=== PATIENT | female | born 1995 | race Caucasian/White ===

== ENCOUNTER → 2018-03-22 | Outpatient (REF) | payer OTHER | LOC: M SFHCLERA 12:06 | DX: J02.9 Acute pharyngitis, unspecified (principal) ==

== ENCOUNTER → 2019-07-12 | Outpatient (CLI) | payer OTHER ==
[~2019-07-12] MED LIST: REGL10TA6 PO; ZOFR4TAB16 PO
--- NOTE | 2019-07-12 16:10 | REP ---
Clinical: Dating and viability. Technique: Transabdominal and transvaginal first trimester obstetrical ultrasound with color Doppler evaluation. Findings: Single live early intrauterine is appreciated. Gestational sac with yolk sac and pole identified. [place]-rump length of 23 mm corresponds to 9 weeks 0 days gestational age with estimated date of delivery 02/14/2020 . heart rate equals 175 beats per minute. No gross abnormalities are identified. Impression: Single live early intrauterine at 9 weeks 0 days gestational age. Complete anatomical assessment should be performed and 19-20 weeks. Electronically Signed by Colby Zapata MD 07/12/2019 04:02 P
== END ==
LOC: M RAD 14:07
PROVIDERS: ATTEND Registered Nurse Maternal Newborn
DX: Z36.89 Encounter for other specified antenatal screening (principal); Z3A.09 9 weeks gestation of pregnancy

== ENCOUNTER 2019-08-06 04:41 | Emergency (ER) | payer OTHER ==
[~2019-08-06] VITALS: Ht 165.1 cm; Wt 65.9 kg
[2019-08-06 04:41] VITALS: BP 121/80
[2019-08-06] MEDS ORDERED: ZOFR4TAB16 PO (04:48)
[2019-08-06] MEDS ORDERED: METOCLOPRAMIDE INJ 10MG/2ML VIAL (J2765) IV ONE (05:30)
[2019-08-06] MEDS ORDERED: NS 1,000 ML IV ONE (05:30)
[2019-08-06 05:31] LABS: BASO % 0.3 % (0.0-1.0); EOS # 0.1 10^3/uL (0.0-0.5); HEMATOCRIT 35.5 % (36.0-47.0); HEMOGLOBIN 12.2 g/dl (12.0-15.5); LYMPH # 1.3 10^3/uL (1.5-5.0); LYMPH % 13.7 % (24.0-44.0); MEAN CORPUSCULAR HEMOGLOBIN 29.4 pg (27.0-33.0); MEAN CORPUSCULAR HGB CONC 34.4 g/dl (32.0-36.5); MEAN CORPUSCULAR VOLUME 85.5 fl (80.0-96.0); MONO # 0.4 10^3/uL (0.0-0.8); MONO % 4.1 % (0.0-5.0); NEUTROPHILS # 7.5 10^3/uL (1.5-8.5); NEUTROPHILS % 80.6 % (36.0-66.0); PLATELET COUNT, AUTOMATED 215 10^3/uL (150-450); RED BLOOD COUNT 4.15 10^6/uL (4.00-5.40); WHITE BLOOD COUNT 9.4 10^3/uL (4.0-10.0)
[2019-08-06 05:54] LABS: ALBUMIN 3.8 GM/DL (3.2-5.2); ALT/SGPT 15 U/L (12-78); BILIRUBIN,DIRECT 0.2 MG/DL (0.0-0.2); BILIRUBIN,TOTAL 0.6 MG/DL (0.2-1.0); BLOOD UREA NITROGEN 6 MG/DL (7-18); CALCIUM LEVEL 9.5 MG/DL (8.5-10.1); CARBON DIOXIDE LEVEL 25 MEQ/L (21-32); CHLORIDE LEVEL 106 MEQ/L (98-107); CREATININE FOR GFR 0.59 MG/DL (0.55-1.30); GLOMERULAR FILTRATION RATE > 60.0 (>60); GLUCOSE, FASTING 86 MG/DL (70-100); LIPASE 111 U/L (73-393); POTASSIUM SERUM 4.2 MEQ/L (3.5-5.1); SODIUM LEVEL 138 MEQ/L (136-145); TOTAL PROTEIN 7.1 GM/DL (6.4-8.2)
[2019-08-06] MEDS ORDERED: REGL10TA6 PO (06:19)
== END 2019-08-06 07:03 | disposition home or self-care (01) ==
LOC: M ED 04:41
DX: O21.0 Mild hyperemesis gravidarum (principal); Z3A.13 13 weeks gestation of pregnancy
CPT/HCPCS: 80048; 80076; 81001; 83690; 85025; 87086; 96361; 96374; 99284; J2765

== ENCOUNTER 2019-12-22 13:05 | Outpatient (CLI) | payer OTHER ==
[~2019-12-22] VITALS: Ht 165.1 cm; Wt 71.5 kg
[2019-12-22] MEDS ORDERED: PRENTAB9 PO (13:20)
[2019-12-22 13:23] VITALS: BP 128/73
[2019-12-22 13:53] VITALS: BP 122/63
--- NOTE | 2020-01-01 13:10 | IPNPDOC ---
Text Note Date of Service The patient was seen on 01/01/20. NOTE LATE ENTRY: Patient Elzbieta Grimm MD Jan 01, 2020 13:10
== END 2019-12-22 14:36 | disposition home or self-care (01) ==
LOC: M LDO 13:05
PROVIDERS: ATTEND Obstetrics & Gynecology
DX: O36.8130 Decreased fetal movements, third trimester, not applicable or unspecified (principal); Z3A.34 34 weeks gestation of pregnancy
CPT/HCPCS: 59025; G0378; G0463

== ENCOUNTER 2020-02-04 11:48 | Emergency (ER) | payer OTHER ==
[~2020-02-04] VITALS: Ht 165.1 cm; Wt 75.0 kg
[2020-02-04 11:48] VITALS: BP 141/85
[~2020-02-04 11:48] MED LIST changes: +PRENTAB9 PO
[2020-02-04] MEDS ORDERED: EMLA CREAM 5GM (LIDOCAINE/PRILOCAINE) TOP ONE (12:15)
[2020-02-04] MEDS ORDERED: ACETAMINOPHEN 500 MG TAB PO ONE (12:15)
[2020-02-04] MEDS ORDERED: QC A650T3 PO (13:06)
== END 2020-02-04 13:13 | disposition home or self-care (01) ==
LOC: M ED 11:48
DX: O9A.219 Injury, poisoning and certain other consequences of external causes complicating pregnancy, unspecified trimester (principal); S01.01XA Laceration without foreign body of scalp, initial encounter; W22.8XXA Striking against or struck by other objects, initial encounter; Y92.71 Barn as the place of occurrence of the external cause; Z3A.00 Weeks of gestation of pregnancy not specified; Z79.899 Other long term (current) drug therapy

== ENCOUNTER 2020-02-04 13:18 | Outpatient (CLI) | payer OTHER ==
[~2020-02-04] VITALS: Ht 165.1 cm; Wt 75.3 kg
[~2020-02-04 13:18] MED LIST changes: +QC A650T3 PO
[2020-02-04 13:28] VITALS: BP 123/75
--- NOTE | 2020-02-04 13:57 | IPNPDOC ---
Text Note Date of Service The patient was seen on 02/04/20. NOTE Patient is a at 39wks s/p trauma. Patient got hit in the head with a board on the left side due to her dog knocking it over. She came to the ER due to it bleeding and her becoming very dizzy. She got 6 angy. Good movement and no contractions. Unsure about vaginal bleeding or loss of fluid. No fall or other trauma. PE VS WNL NAD, A&O x3, good recall Head clean without bruises and 6 angy intact towards middle of hairline slightly to left ABD nontender, gravid SVE no blood or fluid, FT/thick/-3 BLE no edema and nontender FHT category 1, 120s, reactive, no decels, no contractions A/P: Fetus reassuring. No evidence of labor. Since there was no trauma to abdomen and no contractions or pain, I will not pursue an US to further look for placental abruption. Stable currently. Will monitor a total of 4hrs post trauma. She has a f/u appt tomorrow. Elzbieta Grimm MD Feb 04, 2020 13:57
[2020-02-04 15:35] VITALS: BP 123/67
== END 2020-02-04 15:52 | disposition home or self-care (01) ==
LOC: M LDO 13:18
PROVIDERS: ATTEND Obstetrics & Gynecology
DX: O9A.213 Injury, poisoning and certain other consequences of external causes complicating pregnancy, third trimester (principal); S09.90XA Unspecified injury of head, initial encounter; W22.8XXA Striking against or struck by other objects, initial encounter; Y92.89 Other specified places as the place of occurrence of the external cause; Y93.89 Activity, other specified; Y99.8 Other external cause status; Z3A.39 39 weeks gestation of pregnancy
CPT/HCPCS: 59025; G0378; G0463

== ENCOUNTER 2020-02-19 17:27 | Inpatient (IN) | payer OTHER ==
[~2020-02-19] VITALS: Ht 165.1 cm; Wt 73.5 kg
[2020-02-19] MEDS ORDERED: miSOPROStol 50 MCG 1/2 TAB (S0191) PO ONE (19:15)
[2020-02-19] MEDS ORDERED: LACTATED RINGER'S 1000 ML IV ONE (19:15)
[2020-02-19 19:41] VITALS: BP 116/79
[2020-02-19] MEDS: LR 1,000 ML IV SCH (20:08)
[2020-02-19 20:57] LABS: HEMATOCRIT 31.7 % (36.0-47.0); HEMOGLOBIN 10.3 g/dl (12.0-15.5); MEAN CORPUSCULAR HEMOGLOBIN 27.5 pg (27.0-33.0); MEAN CORPUSCULAR HGB CONC 32.5 g/dl (32.0-36.5); MEAN CORPUSCULAR VOLUME 84.8 fl (80.0-96.0); PLATELET COUNT, AUTOMATED 206 10^3/uL (150-450); RED BLOOD COUNT 3.74 10^6/uL (4.00-5.40); WHITE BLOOD COUNT 9.9 10^3/uL (4.0-10.0)
[2020-02-19 21:16] VITALS: BP 109/60
[2020-02-19 22:17] VITALS: BP 112/71
[2020-02-19] MEDS ORDERED: diphenhydrAMINE 25MG CAP PO ONE (22:30)
[2020-02-19 23:23] VITALS: BP 98/61
[2020-02-20] VITALS (29 sets, daily range): BP systolic 91–138; BP diastolic 51–80
[2020-02-20] MEDS ORDERED: miSOPROStol 50 MCG 1/2 TAB (S0191) PO ONE ×2 (00:30→06:45)
--- NOTE | 2020-02-20 07:05 | HPE ---
DATE OF ADMISSION: 02/19/2020 24-year-old 1, para 0, last menstrual period (LMP) 05/07/2019, estimated date of confinement (EDC) of 02/11/2020 at 41 weeks of gestation. Risk factors is she has anxiety and depression. The scale score is 17 out of 30. She stopped taking her Lexapro at the beginning of . However, she would like to restart it after she is delivered. 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 Labs show O positive, HIV negative, hep negative, RPR negative, rubella immune. Varicella immune. Pap normal. Urine negative. Gonorrhea and chlamydia negative. 1-hour glucose 110. Group B Streptococcus (GBS) is negative. Blood pressure 120/76, respirations 18, pulse 111 and temperature is 97.6. Urine is 1.025, +1 ketones and pH is 7. She does not appear in any distress. Has a category 1 strip. Symphysis fundus height is 40, vertex, OA, four quadrant bowel sounds are noted. Cervix is posterior, fingertip, thick and -3 station. The rest the examination unremarkable. She is normocephalic, atraumatic. Neck full range of motions. Pupils equal and reactive to light. Distal pulses symmetric. No evidence of deep vein thrombosis (DVT), pulmonary embolism (PE), or superficial phlebitis. Chest is clear bilaterally to bases. No wheezes or rhonchi. No CVA tenderness. Abdomen is soft. Appropriate symphysis fundus height. She has no rashes, lesions or pruritus. No arthralgia, myalgia. No complaint of joint pain. No complaint of cough, wheeze, shortness of breath or dyspnea on exertion. No nausea, vomiting, diarrhea or constipation. No bruising. No bleeding. Neuro complete. No diabetic issues. No heat or cold sensitivity issues. She has no gyne history. No sexually transmitted diseases (STD). No abnormal Pap smears. PAST MEDICAL HISTORY: Extreme anxiety. PAST SURGICAL HISTORY: Noncontributory. FAMILY HISTORY: Noncontributory. SOCIAL HISTORY: She does not smoke, drink or abuse drugs. She is to a soldier. No domestic violence and has a good support system. We discussed the consent for vaginal delivery which is a vaginal delivery with the possible use of forceps or vacuum devices if needed for maternal or indications. Forceps and vacuum devices can assist with vaginal delivery when normal pushing efforts cannot achieve delivery on their own or when delivery is needed in an emergency for the baby's well-being. Medications may be used or required to induce or augment labor in order achieve vaginal delivery. An episiotomy may be required to help baby deliver vaginally. You may also require repair of lacerations, tears of the vagina, vulva that caused by vaginal delivery. In some cases emergencies can arise that require emergency section. These are only done for clinical indications and reason is that it would be safer to do a section for mother and baby than continue laboring. Risks of vaginal delivery include, but not limited to, bleeding, infection, injury to vagina, pelvic structures, injury to baby, damage to the uterus, reaction to anesthesia, uterine rupture. Risk of hysterectomy for life-threatening bleeding issues. Medication used to induce or augment labor may increase risk of possible section, hysterectomy or hemorrhage, with heart rate abnormalities and need for emergency section. Other risks include perineal and vaginal lacerations risk of urinary and bowel incontinence. Risk of forceps or vacuum include scratches, hematomas to the head and intracranial bleed. After a 40 minute discussion, all questions were answered, patient has agreed to ongoing plan of care which is to hydrate because she is ketone positive, oral misoprostol times one, reassessment in 4 hours, and epidural on a p.r.n. basis.
--- NOTE | 2020-02-20 08:01 | IPN ---
DATE OF SERVICE: 02/20/2020 at 0630 This lady was admitted for induction of labor at 41 weeks of gestation. She had two lots of misoprostol 50 mg by mouth, had a Benadryl overnight for sleep. On examination this morning she had a category 1 strip however when she was on her back she had a deceleration down to 70 per minute, it did recover after giving her off her back. On examination digitally the cervix has changed, it is anterior, it is about 1.5 cm, it is soft, about 50% effaced, still -3 station. We anticipate one more Cytotec at which time a Hawkins bulb catheter and Pitocin may be entertained. Blood pressure this morning was 109/62 at 0630 this morning, respirations are 18, pulse is 68 and temperature is 98.4. Our plan of management is to allow her to have breakfast, repeat the Cytotec times one 50 mcg and at that time we anticipate Hawkins bulb catheter and Pitocin. The patient expressed understanding of the plan of care. cc: CROOK OPERATOR Ally ROWLAND
[2020-02-20] MEDS ORDERED: miSOPROStol 25 MCG 1/4 TAB (S0191) PV ONE (09:00)
--- NOTE | 2020-02-20 09:26 | IPN ---
DATE: 02/19/2020 TIME: 2355 hours This lady is 1, para 0 admitted to 41 weeks for induction of labor. She had one Cytotec, which gave her a few contractions but basically unchanged her cervix in 4 hours. She elected to try and sleep and we gave her some Benadryl orally because of restless legs and the fact that she was tired and wished to have a rest prior to continuing on with induction of labor. She was given another 50 mg of misoprostol orally and she had a category one strip and was allowed to sleep. Her blood pressure was 98/61, respirations 18, pulse was 78 and her temperature was 98.1. We will reassess her in 4 to 6 hours.
--- NOTE | 2020-02-20 09:44 | IPNPDOC ---
Obstetrical Progress Note Date of Service Feb 20, 2020 Subjective Received report from Dr. Goncalves during board sign out of 24yo at 41+3wks who was admitted yesterday for PDIOL. She has received 2x doses of PO cytotec and benadryl for sleep. Leah reports +FM, some cramping, denies LOF/VB. She has had breakfast and s howered and is ready to continue her IOL. She consents to Cervical exam at this time. Objective O: VSS, afebrile FHR: 150s, moderate variability. + Accels, late deceleration noted while pt was being examined while in supine position - recovered when repositioned, but variability now minimal. CTX by TOCO: q2-3 minutes, mild by palpation VE: 3-4cm/60/-2 and posterior. Membranes swept at this time and pt tolerated well. Vital Signs Date Time Temp Pulse Resp B/P (MAP) Pulse Ox O2 Delivery O2 Flow Rate FiO2 02/20/20 06:18 98.4 68 18 109/62 (78) Assessment Heart Rate Tracing: Category II Sterile Vaginal Examination Postion/Presentation: Cephalic presentation Assessment and Plan Group B Streptococcus: Negative Anticipate: Vaginal Delivery Additional Comments A: 24yo at 41+3wks undergoing IOL for post-dates; not in labor. Category II FHT d/t late deceleration (positional) and minimal variabililty. P: CEFM x2 500mL LR bolus Continue resuscitative interventions PRN Start Pitocin per low dose protocol Continue to monitor maternal/ status Reassess in 4 hours or sooner PRN Consult with OB as indicated Anticipate KHAI SANTOS CNM Feb 20, 2020 09:44
[2020-02-20] MEDS ORDERED: LR 500 ML IV ONE (09:45)
[2020-02-20] MEDS ORDERED: OXYTOCIN DRIP 30 UNITS in IV 1 EA IV SCH ×2 (09:45→21:02)
[2020-02-20] MEDS ORDERED: PROMETHAZINE INJ 25 MG/ML VIAL (J2550) IV ONE (13:00)
[2020-02-20] MEDS ORDERED: BUTORPHANOL 2 MG/ML INJ (J0595) IV ONE (13:00)
--- NOTE | 2020-02-20 15:21 | IPNPDOC ---
Obstetrical Progress Note Date of Service Feb 20, 2020 Subjective Pt now s/p stadol and phenergan and denies feeling any pain or any concerns. Objective O: VSS, afebrile FHR 135, minimal variability (some periods of moderate variability), no accels (that meet 15x15 criteria); intermittent variable, late and early decelerations. CTX by TOCO: 1.5-4, irregular pattern Pitocin running at 4mu/min Last VE by RN at 1255: 5/80/-2, posterior Prolonged late deceleration noted at 1346 after administration of stadol. Interventions by RN started and pt eventually received an LR bolus. Vital Signs Date Time Temp Pulse Resp B/P (MAP) Pulse Ox O2 Delivery O2 Flow Rate FiO2 02/20/20 13:36 20 02/20/20 06:18 98.4 68 109/62 (78) Sterile Vaginal Examination Postion/Presentation: Cephalic presentation Assessment and Plan Anticipate: Vaginal Delivery Additional Comments A: 24yo at 41+3wks gestation, early labor with pitocin running at 4mu/min. Category II FHT with ongoing interventions. P: Continue resuscitative interventions PRN Close maternal/ monitoring CEFM x2 Continue pitocin per low dose protocol Consult with OB as indicated Anticipate KHAI SANTOS CNM Feb 20, 2020 15:21
--- NOTE | 2020-02-20 16:53 | IPNPDOC ---
Text Note Date of Service The patient was seen on 02/20/20. NOTE Intrapartum Note Leah is a 24yo with SIUP at 41w1d undergoing IOL for LTG which was started yesterday with oral cytotec. This morning pitocin was started, she recently received stadol/phenergan. She developed a Cat II FHRT with recurrent late decels after receiving stadol and she was placed on her side, pitocin was stopped and she received IVF bolus. I assumed primary care of Leah at 1600 from [facility]. Pt is comfortable not yet requesting epidural. Vitals wnl, afebrile Cat II FHRT with mod leandra, +accels, occasional non-repetitive late decels SCE: 6/80/-2, AROM performed with scant fluid noted. IUPC and FSE placed. Will plan to observe MVUs and restart pitocin to achieve adequate MVUs if tolerated Will continue to closely observe Safe to proceed Dr. Emily Mishra MD VS,Julia, I+O VS, Julia, I+O Laboratory Tests 02/19/20 20:37 Vital Signs Date Time Temp Pulse Resp B/P (MAP) Pulse Ox O2 Delivery O2 Flow Rate FiO2 02/20/20 13:36 20 02/20/20 06:18 98.4 68 109/62 (78) Emily Mishra MD Feb 20, 2020 16:53
[2020-02-20] MEDS ORDERED: ceFAZolin SOD 2 GM in IV 1 EA IV ONE (19:30)
[2020-02-20] MEDS ORDERED: BICITRA 30ML SOLN UDC PO ONE (19:30)
[2020-02-20] MEDS ORDERED: AZITHROMYCIN INJ 500 MG, VIAL MATE ADAPTER 1 EACH in D5W 250 ML IV ONE (19:30)
[2020-02-20] MEDS ORDERED: OXYTOCIN INJ 10 UNITS/ML VIAL (J2590) As Ordered ONE (19:44)
[2020-02-20] MEDS ORDERED: MORPHINE PRES-FREE INJ 10 MG/10 ML VIAL (J2274) As Ordered ONE (19:57)
[2020-02-20] MEDS ORDERED: NALBUPHINE HCL 10 MG/ML AMP (J2300) IV PRN (20:05)
[2020-02-20] MEDS ORDERED: NALOXONE INJ 0.4 MG/1 ML VIAL (J2310) IV PRN ×2 (20:05)
[2020-02-20] MEDS ORDERED: METOCLOPRAMIDE INJ 10MG/2ML VIAL (J2765 PER 1) IV PRN (20:05)
[2020-02-20] MEDS ORDERED: ONDANSETRON 4MG/2ML VIAL (J2405) IV PRN ×2 (20:05→21:00)
--- NOTE | 2020-02-20 20:09 | IPNPDOC ---
Text Note Date of Service The patient was seen on 02/20/20. NOTE Decision for section There are continued FHR decels with contractions- they are difficult to distinguish between variable/late/early but they occur with every ctx and take time to resolve after the ctx which leads me to believe they are "late type" decels indicating placental insufficiency. We have only titrated the pitocin back up to 2mu and she continues to have decels with every ctx. SCE remains 6/80/-2 Given the whole clinical picture, I have recommended PLTCS to the patient for NRFHT with inability to augment. She is amenable. Consent form for PLTCS and blood transfusion fully discussed to include all r/b/a and signed by patient and me Nursing team and anesthesia notified Bessie Alcantar and azithromycin Dr. Emily Mishra MD VS,Julia, I+O VS, Julia, I+O Laboratory Tests 02/19/20 20:37 Vital Signs Date Time Temp Pulse Resp B/P (MAP) Pulse Ox O2 Delivery O2 Flow Rate FiO2 02/20/20 13:36 20 02/20/20 06:18 98.4 68 109/62 (78) Emiyl Mishra MD Feb 20, 2020 20:09
[2020-02-20] MEDS ORDERED: dexameTHASONE 4 MG/ML 1ML VIAL (J1100 PER 1MG) As Ordered ONE (20:21)
[2020-02-20] MEDS ORDERED: PHENYLephrine HCL 500 MCG/5 ML (100MCG/ML) SYRINGE (J2370) As Ordered ONE (20:27)
[2020-02-20] MEDS ORDERED: ONDANSETRON 4MG/2ML VIAL (J2405) As Ordered ONE (20:30)
[2020-02-20] MEDS ORDERED: propofoL 200 MG/20 ML VIAL As Ordered ONE (20:46)
[2020-02-20] MEDS ORDERED: METOCLOPRAMIDE INJ 10MG/2ML VIAL (J2765 PER 1) As Ordered ONE (20:46)
[2020-02-20] MEDS ORDERED: fentaNYL 100 MCG/2 ML INJECTION (J3010) IV PRN (21:00)
[2020-02-20] MEDS ORDERED: KETOROLAC 30 MG/ML 1ML VIAL (J1885 PER 15MG) IV PRN (21:00)
[2020-02-20] MEDS ORDERED: oxyCODONE 5MG TAB PO PRN (21:00)
[2020-02-20] MEDS ORDERED: KETOROLAC 60 MG/2 ML VIAL (J1885 PER 15MG) As Ordered ONE (21:01)
[2020-02-20] MEDS ORDERED: LR 1,000 ML IV SCH (21:02)
--- NOTE | 2020-02-20 21:09 | DNPDOC ---
[facility] Delivery Note Delivery Note DATE OF DELIVERY: 02/20/2020 PREDELIVERY DIAGNOSIS: 41w1d iol for LTG, development of NRFHT with inability to augment further POST DELIVERY DIAGNOSIS: same as above, delivered. PROCEDURE: primary low transverse section TOOL LIAISON: Dr. Emily Mishra MD ANESTHESIA: spinal ESTIMATED BLOOD LOSS: 500 mL. FINDINGS: 3460g male infant, Score 7/10, nuchal cord times 1 DELIVERY SUMMARY: Leah is a 24yo [id number] s/p uncomplicated PLTCS at 2024 on 02/20/2020 for NRFHT when she was undergoing IOL for LTG at 41w1d. Please see dictated op report for further details. MD Tad Holland Katrina D MD Feb 20, 2020 21:09
[2020-02-20] MEDS ORDERED: PERCOCET 5MG/325MG TAB PO PRN ×2 (21:15)
[2020-02-20] MEDS ORDERED: ONDANSETRON 4 MG TAB (S0181) PO PRN (21:15)
[2020-02-20] MEDS ORDERED: RHOGAM 300 MCG (1500 IU) INJ (J2790) IM SCH (21:15)
[2020-02-20] MEDS ORDERED: MEASLES,MUMPS,RUBELLA VACCINE INJ (MMR-II) (90707) SC SCH (21:15)
[2020-02-20] MEDS: LR 1,000 ML IV SCH (21:20)
[2020-02-20] MEDS ORDERED: OXYTOCIN 30 UNITS IN 0.9% NaCl 500ML IV BAG (J2590) As Ordered ONE (21:23)
[2020-02-21] VITALS (7 sets, daily range): BP systolic 98–122; BP diastolic 56–79
--- NOTE | 2020-02-21 00:21 | RO ---
DATE OF PROCEDURE: 02/20/2020 SURGEON: Dr. Emily Mishra MATERIAL PLANNER: Dr. John Duarte who was necessary for retraction and delivery of the baby and closing all of the tissue layers. CLINICAL SERVICE: Obstetrics. INDICATIONS FOR OPERATION: Leah is a 24-year-old G1, now P1-0-0-1 who was undergoing an induction of labor at 41 weeks for late term gestation. She progressed to 6 cm with Cytotec and then Pitocin. However, she began to have a nonreassuring heart rate tracing that did not allow for any augmentation further in labor and she was counseled for section, which she was amendable to. PREOPERATIVE DIAGNOSES: 1. [place]endar[place] intrauterine at 41 weeks 1 day undergoing induction of labor for late term gestation. 2. Nonreassuring heart rate tracing with inability to augment. POSTOPERATIVE DIAGNOSES: 1. [place]endar[place] intrauterine at 41 weeks 1 day undergoing induction of labor for late term gestation. 2. Nonreassuring heart rate tracing with inability to augment. MATERIAL FORWARDED TO THE LAB FOR EXAMINATION: Placenta. DESCRIPTION OF FINDINGS: Male , scores 9 and 9, occiput transverse (OT) presentation. Weight 3460 grams, 7 pounds 10 ounces. She had normal appearing uterus, fallopian tubes and ovaries. INFECTION CLASSIFICATION: II ESTIMATED BLOOD LOSS: 500 mL. URINE OUTPUT: 150 mL of yellow clear urine. IV FLUIDS: 1200 mL of lactated Ringer's. OPERATION PERFORMED: Primary low transverse section. DESCRIPTION OF PROCEDURE: The patient was taken to the operating room. She received spinal anesthesia. She had Hawkins catheter placed and bilateral sequential compression devices. She was prepped and draped in a normal sterile fashion in a dorsal supine position with a left lateral tilt. Time-out was performed to confirm patient name, date of , procedure and indication. The surgical team, nursing staff and anesthesia team were all in agreement. Spinal anesthesia was found to be adequate using an Allis clamp. She had been given 2 grams of IV Ancef prophylactically as well as 500 mg IV azithromycin for preoperative prophylaxis. A Pfannenstiel skin incision was made with a scalpel and carried through to the underlying layer of fascia. Fascia was incised in the midline, and the incision was extended laterally with Cope scissors. Superior and inferior aspects of the fascial incision were grasped with Anibal clamps, elevated and the underlying rectus muscles were dissected off bluntly and sharply. Peritoneum was entered digitally and the rectus muscles were in the midline. Peritoneal incision was extended superiorly and inferiorly with good visualization of the bladder. Bladder blade was inserted and the vesicouterine peritoneum was identified, grasped with pickups and entered sharply with Metzenbaum scissors. The incision was extended laterally and a bladder flap was created digitally. Bladder blade was reinserted and the lower uterine segment was scored in a transverse fashion with a scalpel. Uterus was entered bluntly and the incision was extended with traction with clear amniotic fluid noted. Bladder blade was removed and 's head was elevated to the level of the incision. Fundal pressure was applied. The head was delivered atraumatically in the OT position. Anterior shoulder, posterior shoulder and corpus were delivered without difficulty. Nose and mouth were suctioned with bulb suction, cord was clamped times two and cut. The was handed off to the awaiting nursing team. Placenta was removed with uterine massage and traction on the cord, and the uterus was brought up out of the body to repair. It was cleared of all clot and debris. Uterine incision was repaired with #0 Vicryl suture in a running locking fashion and a second layer of #0 Monocryl was used to close the hysterotomy incision in an imbricating fashion. Uterine incision was inspected and hemostasis was noted. Gutters were cleared of all clot and irrigated with hemostasis noted. Peritoneum was closed using #3-0 Vicryl suture in a running fashion. Fascia was reapproximated with #0 Vicryl suture in a running fashion. Subcutaneous tissue was copiously irrigated. Sariah's fascia was reapproximated using #3-0 Vicryl suture in a running fashion. Skin was closed using a running subcuticular stitch with #4-0 Monocryl suture. Incision was cleaned with a wet lap, dried with a dry lap. Steri-Strips were applied in the usual fashion. Two strips of Telfa were layered on top of the Steri-Strips followed by a dry sterile towel. Surgical drapes removed, sterile towel was removed. Pressure dressing was applied over the entire surgical incision. Vagina was cleared of all blood clot without active bleeding noted. Fundus was firm at the umbilicus. All counts were correct times two. Procedure was without complications. The patient tolerated the procedure well. She was taken to the recovery room on labor and delivery in stable condition. AZAR
[2020-02-21] MEDS: KETOROLAC 30 MG/ML 1ML VIAL (J1885 PER 15MG) IV SCH ×3 (03:05→14:56)
[2020-02-21] MEDS: PRENATAL VITAMINS CHEWABLE TABLET PO SCH (08:13)
[2020-02-21] MEDS: DOCUSATE SODIUM 100 MG CAP PO SCH ×2 (08:13→21:22)
--- NOTE | 2020-02-21 08:19 | IPNPDOC ---
Progress Note Date of Service: Feb 21, 2020 Day#: 1 Progress Note PPD/POD 1 SUBJECT: Leah is a 24yo [id number] s/p uncomplicated PLTCS at 2024 on 02/20/2020 for NRFHT when she was undergoing IOL for LTG at 41w1d, doing well /post-op day # 1. She has been ambulating with no lightheadedness/dizziness, has junior in place draining clear yellow urine. Has tolerated fluids, just ordered breakfast, no n/v. Breast feeding without issue. Reports lochia is like a normal period. No f/c/CP/SOB. OBJECTIVE: VITAL SIGNS: Within normal limits, afebrile. Alert and oriented times three. Abdomen: Fundus firm at U-2. Soft, appropriately tender to palpation withOUT rebound/guarding. Dry clean dressing overlying pfannensteil incision Extremities: no pain with palpation of calves, SCDs in place Labs: pre-op h/h: 10.3/31.7 post-op h/h: pending ASSESSMENT: Leah is a 24yo [id number] s/p uncomplicated PLTCS at 2024 on 02/20/2020 for NRFHT when she was undergoing IOL for LTG at 41w1d, doing well /post-op day # 1. Vitals within normal limits, afebrile, hemodynamically stable with no evidence of infection. PLAN: 1. Routine /post-op care 2. Toradol then Motrin for pain. Percocet prn. 3. Encouraged breast feeding and ambulation. 4. Regular diet 5. Ok to shower tonight and remove outer bandage, leave steri strips in place 6. Remove junior catheter this morning with 4 hour due to void 7. am CBC pending Dr. Emily Mishra, M, VS, I&O, 24H, Fishbone Vital Signs/I&O Vital Signs Date Time Temp Pulse Resp B/P (MAP) Pulse Ox O2 Delivery O2 Flow Rate FiO2 02/21/20 05:15 98.0 65 18 98/56 (70) 96 Room Air I&O- Last 24 Hours up to 6 AM 02/21/20 06:00 Intake Total 4411.0 ml Output Total 1580 ml Balance 2831.0 ml Laboratory Data CBC/BMP Emily Mishra MD Feb 21, 2020 08:18
[2020-02-21 08:30] LABS: HEMATOCRIT 25.4 % (36.0-47.0); HEMOGLOBIN 8.4 g/dl (12.0-15.5); MEAN CORPUSCULAR HEMOGLOBIN 28.3 pg (27.0-33.0); MEAN CORPUSCULAR HGB CONC 33.1 g/dl (32.0-36.5); MEAN CORPUSCULAR VOLUME 85.5 fl (80.0-96.0); PLATELET COUNT, AUTOMATED 184 10^3/uL (150-450); RED BLOOD COUNT 2.97 10^6/uL (4.00-5.40); WHITE BLOOD COUNT 16.4 10^3/uL (4.0-10.0)
[2020-02-21] MEDS: diphenhydrAMINE 50MG/ML VIAL (J1200) IV PRN ×2 (10:37→14:36)
[2020-02-21] MEDS: ESCITALOPRAM OXALATE 10 MG TAB (LEXAPRO) PO SCH (10:38)
[2020-02-21] MEDS: IBUPROFEN 800 MG TAB PO SCH (22:42)
[2020-02-22 06:00] VITALS: BP 111/71
[2020-02-22] MEDS ORDERED: PERCOCET PO (06:36)
[2020-02-22] MEDS ORDERED: DOCU100C16 PO (06:36)
[2020-02-22] MEDS ORDERED: IBUP80TA PO (06:36)
[2020-02-22] MEDS ORDERED: ESCI10TA2 PO (06:36)
[2020-02-22] MEDS: IBUPROFEN 800 MG TAB PO SCH (07:00)
[2020-02-22] MEDS: ESCITALOPRAM OXALATE 10 MG TAB (LEXAPRO) PO SCH (09:07)
[2020-02-22] MEDS: DOCUSATE SODIUM 100 MG CAP PO SCH (09:07)
[2020-02-22] MEDS: PRENATAL VITAMINS CHEWABLE TABLET PO SCH (09:07)
--- NOTE | 2020-02-22 09:12 | DSES ---
DATE OF ADMISSION: 02/19/2020 DATE OF DISCHARGE: 02/22/2020 This is 24-year-old, 1 was admitted for induction of labor at 41 weeks of gestation had a primary section live male infant 7 pounds 10 ounces (3460 grams) of 9 and 9 at one and five minutes respectively. Her second day we discussed phlebitis, cystitis, mastitis, endometritis and cellulitis, diet, exercise, pain management, perineal, breast and wound care. On examination, she was normocephalic, atraumatic. Neck full range of motion. Pupils equal and reactive to light. Distal pulses symmetric. No evidence of deep venous thrombosis (DVT), pulmonary embolism (PE) or superficial phlebitis. Chest is clear bilateral to bases. No wheezes or rhonchi. No costovertebral angle (CVA) tenderness. Abdomen was soft. Uterus two below. Lochia is moderate. Four quadrant bowel sounds are noted. Incision is clean and dry. No rashes, lesions or pruritus. No arthralgia or myalgia. No complaint of joint pain. No complaint of cough, wheeze, shortness breath or dyspnea on exertion. No nausea, vomiting, diarrhea or constipation. No urgency or frequency. Blood pressure 122/78, respirations 18, pulse 78, temperature 97.8. Admitting hemoglobin was 10.3, hematocrit 31.7, platelets 206. Discharge hemoglobin 8.4, hematocrit 25.4, and platelets are 184. She is asymptomatic. Medications were dispensed at [facility]. She has a 2 week incision check and a 6 week check at [facility]. All questions were answered. 25 minute discussion. The patient has a planned appointment with [facility] for the baby. edited: 02/23/2020 0745 gene ASKEW
--- NOTE | 2020-02-23 13:49 | IPN ---
DATE: 02/21/2020 This patient requested circumcision of her male . After discussing the risks and benefits of circumcision, the medical and the nonmedical indications of penile block and aftercare, expressed understanding of penile block, aftercare and bleeding, signed the consent form. All questions were answered. 20-minute discussion. We await the clearance by the doughnut glazier.
== END 2020-02-22 13:35 | disposition home or self-care (01) | DRG 773 ==
LOC: M LDI 17:27 → M OBS 02-20 22:30
PROVIDERS: ADMIT Obstetrics & Gynecology; ATTEND Obstetrics & Gynecology
PROC: 3E0DXGC Introduction of Other Therapeutic Substance into Mouth and Pharynx, External Approach (ICD-10-PCS; 2020-02-19)
PROC: 3E033VJ Introduction of Other Hormone into Peripheral Vein, Percutaneous Approach (ICD-10-PCS; 2020-02-19)
PROC: 10D00Z1 Extraction of Products of Conception, Low, Open Approach (ICD-10-PCS; principal; 2020-02-20 19:49)
DX: O48.0 Post-term pregnancy (principal); Z37.0 Single live birth; Z3A.41 41 weeks gestation of pregnancy; O76 Abnormality in fetal heart rate and rhythm complicating labor and delivery

== ENCOUNTER 2021-08-06 00:36 | Outpatient (CLI) | payer OTHER ==
[~2021-08-06] VITALS: Ht 165.1 cm; Wt 64.0 kg
[~2021-08-06 00:36] MED LIST changes: +DOCU100C16 PO; +ESCI10TA16 PO; +IBUP80TA PO; +PERCOCET PO
[2021-08-06] MEDS ORDERED: ZOLO100T PO (00:53)
[2021-08-06] MEDS ORDERED: METR1GEL7 PV (00:53)
[2021-08-06 00:56] VITALS: BP 124/74
--- NOTE | 2021-08-06 05:36 | REPVR ---
PROCEDURE INFORMATION: Exam: US First Trimester, Transabdominal Exam date and time: 08/06/2021 3:04 AM Age: 26 years old Clinical indication: Lmp or gestational age (in weeks): 03/08/21; Antepartum complications; Bleeding; ; Additional info: Complete US for anatomy intial US not done, vag bleeding TECHNIQUE: Imaging protocol: Real-time transabdominal obstetrical ultrasound of the maternal pelvis and a first trimester , less than 14 weeks 0 days, with image documentation. COMPARISON: No relevant prior studies available. FINDINGS: Gestation: Single intrauterine gestation. presentation: Presentation is variable. Embryonic/ heart rate: cardiac activity 149 bpm. Extra-embryonic membranes/Placenta: Placenta is position fundal and anterior. Amniotic fluid: Amniotic fluid/chorionic fluid is normal for gestational age. anatomic survey: nose and lips are suboptimally visualized. Intracranial contents recorded as normal. cardiac structures, stomach, abdominal wall, kidneys, bladder, spine and extremities are reported normal although partially limited by spatial resolution of static image review. Three-vessel cord is recorded. BIOMETRY: Gestational age (AUA): Composite estimated gestational age 21 weeks 5 days. Estimated due date (AUA): Estimated date of confinement 12/12/2021. Estimated weight: Estimated weight 454 g. Biparietal diameter: Biparietal diameter 5.2 cm 21 weeks 6 days. Head circumference: Head circumference 19.6 cm 21 weeks 6 days. Abdominal circumference: Abdominal circumference 16.9 cm 21 weeks 6 days. Femur length: Femur length 3.7 cm 21 weeks 5 days. MATERNAL: Uterus: Unremarkable. Cervix: Maternal cervical length 4.1 cm. Right adnexa: Not imaged. Left adnexa: Not imaged. Intraperitoneal space: No intraperitoneal free fluid. Other findings: weight percentile 50%. IMPRESSION: Single intrauterine gestation with composite estimated gestational age 21 weeks 5 days. Electronically signed by: Natasha Wagner On 08/06/2021 05:36:01 AM
--- NOTE | 2021-08-06 08:10 | HPE ---
HISTORY AND PHYSICAL DATE OF ADMISSION: 08/06/2021 HISTORY OF PRESENT ILLNESS: This lady is a 26-year-old 2, para 1, last menstrual period (LMP) was January 12, 2021, estimated date of confinement (EDC) December 13, 2021 by early dating ultrasound. MEDICAL HISTORY: Her history is that of depression. She had a previous section 02/2020 for non-reassuring heart after induction of labor at 41 and1 week of gestation and inability to augment, got to 6 cm dilatation. RISK FACTORS: Has a history of depression, short interval , previous section. PHYSICAL EXAMINATION: No acute distress. Symphysis fundus height is appropriate. heart as noted on the [place]. Blood pressure is 124/74, respirations 16, pulse 76, temperature is 98.5. Sterile speculum examination: No evidence of blood at the perineum. Vagina: No evidence of bleeding. There is a moderate amount of white discharge. Cervix is posterior thick and close. No evidence of active dilatation or bleeding of the cervix. On removal of the spectrum, she does not have any external or internal hemorrhoids. Etiology of the streaking is unknown. She has no contractions. No feeling any pain Good active movement. The patient was discharged to follow up with her routine antepartum visit on February 19, 2021. Ultrasound revealed a viable intrauterine at 20 weeks one day, vertex presenting, placenta is anterior. Cervix is 4.1 cm and close. No evidence of subchorionic hemorrhage or bleeding. Anatomy revealed negative in all examination baker; however, the nose and the facial features were unavailable as the baby was not in a position for us to be able to see the rest of that anatomy. SUMMARY: We have a 21 and one week gestation, had streaking on the toilet paper times one, no cramping, no bleeding after that. Active fetus with normal anatomy. Discharged to follow with [facility]. All questions were answered. One hour discussion. The patient was discharged undelivered. [facility]
== END 2021-08-06 03:25 | disposition home or self-care (01) ==
LOC: M LDO 00:36
PROVIDERS: ATTEND Obstetrics & Gynecology
DX: O26.852 Spotting complicating pregnancy, second trimester (principal); Z3A.21 21 weeks gestation of pregnancy; O99.342 Other mental disorders complicating pregnancy, second trimester; F32.9 Major depressive disorder, single episode, unspecified
CPT/HCPCS: 76811; G0378; G0463

== ENCOUNTER 2021-11-16 16:17 | Outpatient (CLI) | payer OTHER ==
[~2021-11-16] VITALS: Ht 165.1 cm; Wt 70.0 kg
[~2021-11-16 16:17] MED LIST changes: +METR1GEL7 PV; +ZOLO100T PO
[2021-11-16] MEDS ORDERED: MVI -ADULT INJECTION 10ML VIAL IV ONE (16:25)
[2021-11-16] MEDS ORDERED: TUMS750C5 PO (16:38)
[2021-11-16] MEDS ORDERED: HOME MED LIST COMPLETE! XX SCH (16:40)
[2021-11-16 16:42] VITALS: BP 121/61
[2021-11-16] MEDS ORDERED: MULTIVITAMIN -ADULT INJECTION 10 ML in NS 1,000 ML IV SCH (17:00)
[2021-11-16 17:23] LABS: HEMATOCRIT 32.2 % (36.0-47.0); HEMOGLOBIN 10.4 g/dl (12.0-15.5); MEAN CORPUSCULAR HEMOGLOBIN 26.9 pg (27.0-33.0); MEAN CORPUSCULAR HGB CONC 32.3 g/dl (32.0-36.5); MEAN CORPUSCULAR VOLUME 83.4 fl (80.0-96.0); PLATELET COUNT, AUTOMATED 246 10^3/uL (150-450); RED BLOOD COUNT 3.86 10^6/uL (4.00-5.40); WHITE BLOOD COUNT 8.9 10^3/uL (4.0-10.0)
[2021-11-16 17:35] LABS: ALBUMIN 2.8 GM/DL (3.2-5.2); ALT/SGPT 12 U/L (12-78); BILIRUBIN,TOTAL 0.7 MG/DL (0.2-1.0); BLOOD UREA NITROGEN 4 MG/DL (7-18); CALCIUM LEVEL 8.1 MG/DL (8.5-10.1); CARBON DIOXIDE LEVEL 23 MEQ/L (21-32); CHLORIDE LEVEL 106 MEQ/L (98-107); GLOMERULAR FILTRATION RATE > 60.0 (>60); GLUCOSE, FASTING 86 MG/DL (70-100); POTASSIUM SERUM 3.6 MEQ/L (3.5-5.1); SODIUM LEVEL 138 MEQ/L (136-145); TOTAL PROTEIN 6.6 GM/DL (6.4-8.2)
[2021-11-16 17:39] LABS: APPEARANCE, URINE HAZY (CLEAR); BACTERIA, URINE AUTO NEGATIVE (NEGATIVE); BILIRUBIN, URINE AUTO 1+ (NEGATIVE); BLOOD, URINE BLOOD NEGATIVE (NEGATIVE); COLOR, URINE AMBER (YELLOW); GLUCOSE, URINE (UA) AUTO NEGATIVE (NEGATIVE); KETONE, URINE AUTO 1+ mg/dL (NEGATIVE); LEUKOCYTE ESTERASE, URINE AUTO 1+ (NEGATIVE); MUCUS, URINE LARGE (NEGATIVE); NITRITE, URINE AUTO NEGATIVE (NEGATIVE); PROTEIN, URINE AUTO 2+ mg/dL (NEGATIVE); RBC, URINE AUTO 1 /HPF (0-3); SPECIFIC GRAVITY URINE AUTO 1.027 (1.002-1.035); SQUAMOUS EPITHELIAL CELL UR AU 4 /HPF (0-6); WBC, URINE AUTO 5 /HPF (0-3)
[2021-11-16 17:49] VITALS: BP 114/66
[2021-11-16] MEDS ORDERED: LR 1,000 ML IV SCH (18:00)
[2021-11-16 19:34] LABS: APPEARANCE, URINE CLEAR (CLEAR); BACTERIA, URINE AUTO NEGATIVE (NEGATIVE); BILIRUBIN, URINE AUTO NEGATIVE (NEGATIVE); BLOOD, URINE BLOOD NEGATIVE (NEGATIVE); COLOR, URINE COLORLESS (YELLOW); GLUCOSE, URINE (UA) AUTO NEGATIVE (NEGATIVE); KETONE, URINE AUTO NEGATIVE (NEGATIVE); LEUKOCYTE ESTERASE, URINE AUTO NEGATIVE (NEGATIVE); NITRITE, URINE AUTO NEGATIVE (NEGATIVE); PROTEIN, URINE AUTO NEGATIVE (NEGATIVE); RBC, URINE AUTO 0 /HPF (0-3); SQUAMOUS EPITHELIAL CELL UR AU 0 /HPF (0-6); UROBILINOGEN, URINE AUTO 0.2 mg/dL (0.0-2.0); WBC, URINE AUTO 0 /HPF (0-3)
== END 2021-11-16 20:40 | disposition home or self-care (01) ==
LOC: M LDO 16:17
PROVIDERS: ATTEND Obstetrics & Gynecology
DX: O21.8 Other vomiting complicating pregnancy (principal); O34.219 Maternal care for unspecified type scar from previous cesarean delivery; O99.343 Other mental disorders complicating pregnancy, third trimester; F32.A Depression, unspecified; Z3A.36 36 weeks gestation of pregnancy
CPT/HCPCS: 59025; 80053; 81001; 85027; 87798; 96360; G0378; G0463

== ENCOUNTER 2021-12-10 06:53 | Inpatient (IN) | payer OTHER ==
[~2021-12-10] VITALS: Ht 165.1 cm; Wt 69.4 kg
[2021-12-10] VITALS (8 sets, daily range): BP systolic 107–121; BP diastolic 59–78
[~2021-12-10 06:53] MED LIST changes: +TUMS750C5 PO
[2021-12-10] MEDS ORDERED: AZITHROMYCIN INJ 500 MG, VIAL MATE ADAPTER 1 EACH in NS 250 ML IV ONE (07:15)
[2021-12-10] MEDS ORDERED: BUPIVACAINE HCL 0.25% 10ML VIAL SC ONE (07:15)
[2021-12-10] MEDS ORDERED: LACTATED RINGER'S 1000 ML IV STA (07:15)
[2021-12-10] MEDS ORDERED: BICITRA 30ML SOLN UDC PO ONE (07:15)
[2021-12-10 08:00] LABS: HEMATOCRIT 33.2 % (36.0-47.0); HEMOGLOBIN 10.4 g/dl (12.0-15.5); MEAN CORPUSCULAR HEMOGLOBIN 25.2 pg (27.0-33.0); MEAN CORPUSCULAR HGB CONC 31.3 g/dl (32.0-36.5); MEAN CORPUSCULAR VOLUME 80.6 fl (80.0-96.0); PLATELET COUNT, AUTOMATED 248 10^3/uL (150-450); RED BLOOD COUNT 4.12 10^6/uL (4.00-5.40); WHITE BLOOD COUNT 5.9 10^3/uL (4.0-10.0)
[2021-12-10] MEDS ORDERED: ceFAZolin SOD 2 GM in IV 1 EA IV ONE (08:00)
[2021-12-10] MEDS ORDERED: ACETAMINOPHEN 650 MG SUPP PR SCH (08:00)
[2021-12-10] MEDS: LR 1,000 ML IV SCH ×2 (08:30→16:00)
[2021-12-10] MEDS ORDERED: OXYTOCIN 30 UNITS IN 0.9% NaCl 500ML IV BAG (J2590) As Ordered ONE (08:46)
[2021-12-10] MEDS: PRENATAL VITAMINS CHEWABLE TABLET PO SCH (09:00)
[2021-12-10] MEDS ORDERED: SERTRALINE 100 MG TAB PO SCH (09:00)
[2021-12-10] MEDS ORDERED: MORPHINE PRES-FREE INJ 10 MG/10 ML VIAL (J2274) As Ordered ONE (09:15)
[2021-12-10] MEDS ORDERED: OXYTOCIN INJ 10 UNITS/ML VIAL (J2590) As Ordered ONE (09:15)
[2021-12-10] MEDS ORDERED: METOCLOPRAMIDE INJ 10MG/2ML VIAL (J2765 PER 1) IV ONE (09:25)
[2021-12-10] MEDS ORDERED: ONDANSETRON 4MG/2ML VIAL IV ONE (09:25)
[2021-12-10] MEDS ORDERED: ONDANSETRON 4MG/2ML VIAL IV PRN ×2 (09:51→11:45)
[2021-12-10] MEDS ORDERED: METOCLOPRAMIDE INJ 10MG/2ML VIAL (J2765 PER 1) IV PRN (09:51)
[2021-12-10] MEDS ORDERED: NALOXONE INJ 0.4MG/1ML VIAL (J2310 PER 1MG) IV PRN ×2 (09:51)
[2021-12-10] MEDS ORDERED: NALBUPHINE HCL 10 MG/ML AMP (J2300) IV PRN (09:51)
[2021-12-10] MEDS ORDERED: diphenhydrAMINE 50MG/ML VIAL (J1200) IV PRN (09:51)
[2021-12-10] MEDS ORDERED: ONDANSETRON 4MG/2ML VIAL IV STA (09:52)
[2021-12-10] MEDS ORDERED: METOCLOPRAMIDE INJ 10MG/2ML VIAL (J2765 PER 1) IV STA (09:53)
[2021-12-10 10:35] LABS: CORD GAS ABE V -3.4; CORD GAS HCO3 V 22.7 MEQ/L; CORD GAS O2 SAT V 74.3 %; CORD GAS PCO2 V 44.5 mmHg; CORD GAS PH V 7.326 UNITS; CORD GAS PO2 V 31.1 mmHg; CORD GAS SBC V 21.1 MEQ/L; CORD GAS TCO2 V 24.1 MEQ/L
[2021-12-10 10:36] LABS: CORD GAS ABE A -3.6; CORD GAS HCO3 A 25.3 MEQ/L; CORD GAS O2 SAT A 61.6 %; CORD GAS PCO2 A 60.7 mmHg; CORD GAS PH A 7.238 UNITS; CORD GAS PO2 A 25.9 mmHg; CORD GAS SBC A 20.6 MEQ/L; CORD GAS TCO2 A 27.2 MEQ/L
[2021-12-10] MEDS ORDERED: KETOROLAC 60MG 2ML VIAL As Ordered ONE (10:39)
[2021-12-10] MEDS ORDERED: METOCLOPRAMIDE INJ 10MG/2ML VIAL (J2765 PER 1) As Ordered ONE (10:39)
[2021-12-10] MEDS ORDERED: ONDANSETRON 4MG/2ML VIAL As Ordered ONE (10:39)
[2021-12-10] MEDS ORDERED: ANUSOL HC CREAM 30GM TOP PRN (11:05)
[2021-12-10] MEDS ORDERED: METHYLERGONOVINE MALEATE 0.2 MG TAB PO PRN (11:05)
[2021-12-10] MEDS ORDERED: RHOGAM 300 MCG (1500 IU) INJ (J2790) IM SCH (11:05)
[2021-12-10] MEDS ORDERED: MOM 30ML SUSPENSION UDC PO PRN (11:05)
[2021-12-10] MEDS ORDERED: DOCUSATE SODIUM 100MG CAPSULE PO PRN (11:05)
[2021-12-10] MEDS ORDERED: ACETAMINOPHEN 500 MG TAB PO PRN (11:05)
[2021-12-10] MEDS ORDERED: SIMETHICONE 80MG CHEW TAB PO PRN (11:05)
[2021-12-10] MEDS ORDERED: IBUPROFEN 600MG TAB PO PRN (11:05)
[2021-12-10] MEDS ORDERED: ACETAMINOPHEN TAB 650MG DOSE (2X325MG) PO PRN (11:05)
[2021-12-10] MEDS ORDERED: MEASLES,MUMPS,RUBELLA VACCINE INJ (MMR-II) (90707) SC SCH (11:05)
[2021-12-10] MEDS ORDERED: PERCOCET 5MG/325MG TAB PO PRN (11:10)
[2021-12-10] MEDS ORDERED: OXYTOCIN DRIP 30 UNITS in IV 1 EA IV ONE (11:10)
[2021-12-10] MEDS ORDERED: HYDROMORPHONE HCL 0.5 MG/ 0.5 ML SYRINGE (J1170 PER 1) IV PRN (11:45)
[2021-12-10] MEDS ORDERED: oxyCODONE 5MG TAB PO PRN (11:45)
[2021-12-10] MEDS ORDERED: fentaNYL 100 MCG/2 ML INJECTION IV PRN (11:45)
[2021-12-10] MEDS: KETOROLAC 30 MG/ML 1ML VIAL IV SCH ×2 (17:44→23:28)
[2021-12-10] MEDS: SERTRALINE 100 MG TAB PO SCH (20:36)
[2021-12-11] MEDS: KETOROLAC 30 MG/ML 1ML VIAL IV SCH (05:49)
[2021-12-11 06:00] VITALS: BP 116/64
[2021-12-11] MEDS ORDERED: ACETAMINOPHEN 650 MG SUPP PR SCH (06:00)
[2021-12-11] MEDS ORDERED: ceFAZolin SOD 2 GM in IV 1 EA IV ONE (06:00)
[2021-12-11 07:13] LABS: HEMATOCRIT 23.7 % (36.0-47.0); MEAN CORPUSCULAR HEMOGLOBIN 25.9 pg (27.0-33.0); MEAN CORPUSCULAR HGB CONC 31.6 g/dl (32.0-36.5); MEAN CORPUSCULAR VOLUME 81.7 fl (80.0-96.0); PLATELET COUNT, AUTOMATED 189 10^3/uL (150-450)
[2021-12-11 07:16] LABS: HEMOGLOBIN 7.5 g/dl (12.0-15.5)
[2021-12-11] MEDS: PRENATAL VITAMINS CHEWABLE TABLET PO SCH (09:36)
[2021-12-11 10:00] VITALS: BP 111/73
[2021-12-11] MEDS: PERCOCET 5MG/325MG TAB PO PRN ×2 (13:29→18:25)
[2021-12-11 14:00] VITALS: BP 113/78
[2021-12-11 18:08] VITALS: BP 120/67
[2021-12-11] MEDS: SERTRALINE 100 MG TAB PO SCH (20:41)
[2021-12-11 22:00] VITALS: BP 117/62
[2021-12-12 02:00] VITALS: BP 120/71
[2021-12-12 06:00] VITALS: BP 122/78
[2021-12-12] MEDS ORDERED: FERR325T3 PO (06:31)
[2021-12-12] MEDS: PRENATAL VITAMINS CHEWABLE TABLET PO SCH (08:50)
[2021-12-12] MEDS: PERCOCET 5MG/325MG TAB PO PRN (08:50)
== END 2021-12-12 12:10 | disposition home or self-care (01) | DRG 773 ==
LOC: M LDI 06:53 → M OBS 12:30
PROVIDERS: ADMIT Obstetrics & Gynecology; ATTEND Obstetrics & Gynecology
PROC: 10D00Z1 Extraction of Products of Conception, Low, Open Approach (ICD-10-PCS; principal; 2021-12-10 09:30)
DX: O34.211 Maternal care for low transverse scar from previous cesarean delivery (principal); Z37.0 Single live birth; F32.9 Major depressive disorder, single episode, unspecified; O99.344 Other mental disorders complicating childbirth; O99.824 Streptococcus B carrier state complicating childbirth; Z3A.39 39 weeks gestation of pregnancy